=== PATIENT | male | born 1965 | race Caucasian/White ===

== ENCOUNTER 2019-11-25 15:08 | Observation (INO) | payer BC ==
[2019-11-25] MEDS ORDERED: SODIUM CHLORIDE 0.9% (FLUSH) 10 ML SYG IV PRN (15:22)
--- NOTE | 2019-11-25 15:33 | ED.PDOC ---
History of Present Illness - General Time Seen by Provider: 11/25/19 15:22 Source: patient - History of Present Illness Initial Comments: 54 yo male who presents with cc of Left inguinal pain. Reports onset 1 week ago with progressive worsening. Reports hx of inguinal hernia on the left side at site of pain for many years. Reports it seems the hernia has increased in size over the past week. Reports this has happened in the past and usually he is able to push it back in but currently he is not able to. Also reports only 1-2 stools over the past week and worsening abdominal distension. Currently reports 3/10 constant pain to L inguinal region which radiates into L testicle. Denies any fevers, chills, n/v/d, urinary sx's. His PCP in [place] told him to come here for possible surgical consultation. Allergies/Adverse Reactions: Allergies NO KNOWN ALLERGY Allergy (Verified 11/25/19 15:26) Review of Systems - Review of Systems Review of Systems: 11/25/19 15:43 as per HPI All other Systems: Reviewed and Negative Family Medical History - Family History Mother Family History: Unknown Living Status: Physical Exam - Physical Exam General Appearance: Alert, Comfortable, No apparent distress Eye Exam: bilateral normal Ears, Nose, Throat: hearing grossly normal, normal ENT inspection, normal pharynx Neck: non-tender, full range of motion, supple, normal inspection Respiratory: lungs clear, normal breath sounds, no respiratory distress, no accessory muscle use Cardiovascular/Chest: normal peripheral pulses, regular rate, rhythm, no edema, no gallop, no JVD, no murmur Peripheral Pulses: radial,right: 2+, radial,left: 2+ Gastrointestinal/Abdominal: soft, abnormal bowel sounds - decreased throughout, tenderness - mild LLQ ttp without guarding or rebound, hernia - large left inguinal hernia which protrudes into Left scrotal sac, moderately tender, soft, does not easily reduce, scrotum normal color w/o redness/warmth, L testicle not easily palpated given scrotal hernia, R testicle normal and nontender on palpation Back Exam: normal inspection, no CVA tenderness, no vertebral tenderness Extremity: normal range of motion, non-tender, normal inspection, no pedal edema, no calf tenderness Neurologic: no motor/sensory deficits, alert, normal mood/affect, oriented x 3 Skin Exam: normal color, warm/dry Progress - Progress Progress: 11/25/19 15:43 Acute left inguinal pain -consider inguinal hernia incarceration, strangulation. Consider also constipation, SBO, diverticulitis, kidney stone, epididymitis, UTI, testicular torsion, other -obtain labs, US of hernia, consider surgical consultation 11/25/19 18:41 -Labs pretty unremarkable, pt stable, pain well-controlled -KUB shows moderate amount of stool in the colon without obstruction per my read -US soft tissue of hernia reveals Left inguinal hernia into left scrotum and appears to contain bowel. Left testicle visualized with good blood flow. -Discussed with Dr. Ugarte who came and saw pt in ED - will admit for surgical reduction as he was unable to easily reduce in ED. Shivam Lowery MD Billing #[id number] 11/25/19 15:22 IV Care:Saline Lock per Protoc QSHIFT Sodium Chloride 0.9% (Flush) [Saline Flush Syringe] 10 ml IV PRN PRN 11/25/19 18:35 Admission Order Routine Activity:Ambulate TID Intake/Output Q2HX2,Q4HX2,QSHIFT SCD QSHIFT KCl 20Meq/D5 1/2Ns [D5 1/2NS W/ KCL 20 meq/Liter] 1,000 ml IVS .QD 11/25/19 18:39 Consents:Surgery .ONCE 11/25/19 Dinner Regular Diet Laboratory Results - last 24 hr 11/25/19 11/25/19 11/25/19 15:29 15:29 15:29 WBC 6.6 RBC 5.03 Hgb 16.0 Hct 46.3 MCV 92.0 MCH 31.7 H MCHC 34.5 RDW 13.3 Plt Count 319 MPV 8.0 Absolute Neuts (auto) 4.50 Absolute Lymphs (auto) 1.30 Absolute Monos (auto) 0.40 Absolute Eos (auto) 0.30 Absolute Basos (auto) 0.10 Neutrophils % 68.3 Lymphocytes % 20.2 Monocytes % 6.2 Eosinophils % 4.3 Basophils % 1.0 Sodium 137 Potassium 3.9 Chloride 101 Carbon Dioxide 29 Anion Gap 10.9 L BUN 12 Creatinine 1.07 BUN/Creatinine Ratio 11.2 Random Glucose 97 Serum Osmolality 273.5 L Lactic Acid 1.1 Calcium 8.8 Total Bilirubin 0.4 Direct Bilirubin 0.1 Indirect Bilirubin 0.3 AST 15 ALT 20 Alkaline Phosphatase 59 Serum Total Protein 7.0 Albumin 4.1 Urine Color Urine Appearance Urine pH Ur Specific [place] Urine Protein Urine Glucose (UA) Urine Ketones Urine Blood Urine Nitrite Urine Bilirubin Urine Urobilinogen Ur Leukocyte Esterase Urine RBC Urine WBC Ur Epithelial Cells Urine Bacteria 11/25/19 16:00 WBC RBC Hgb Hct MCV MCH MCHC RDW Plt Count MPV Absolute Neuts (auto) Absolute Lymphs (auto) Absolute Monos (auto) Absolute Eos (auto) Absolute Basos (auto) Neutrophils % Lymphocytes % Monocytes % Eosinophils % Basophils % Sodium Potassium Chloride Carbon Dioxide Anion Gap BUN Creatinine BUN/Creatinine Ratio Random Glucose Serum Osmolality Lactic Acid Calcium Total Bilirubin Direct Bilirubin Indirect Bilirubin AST ALT Alkaline Phosphatase Serum Total Protein Albumin Urine Color Yellow Urine Appearance Clear Urine pH 6.0 Ur Specific [place] >= 1.030 Urine Protein Negative Urine Glucose (UA) Negative Urine Ketones Negative Urine Blood Negative Urine Nitrite Negative Urine Bilirubin Negative Urine Urobilinogen 0.2 Ur Leukocyte Esterase Negative Urine RBC 0 Urine WBC 0-1 Ur Epithelial Cells 0 Urine Bacteria 0 Departure - Departure Clinical Impression: Incarcerated inguinal hernia, Inguinal hernia of left side without obstruction or gangrene Time of Disposition: 18:41 Disposition: Admit Patient Condition: Fair Referrals: CINTHIA OLIVER [Primary Care Provider] - 1-2 Weeks Decision To Admit - Decistion To Admit Decision to Admit Reason: Admit from ER Decision to Admit Date: 11/25/19 Decision to Admit Time: 18:41
[2019-11-25] MEDS ORDERED: KETOROLAC TROMETHAMINE INJ 30 MG/ML VIAL IV ONE (15:51)
--- NOTE | 2019-11-25 16:10 | RAD ---
EXAM DESCRIPTION: Abdomen 1 View CLINICAL HISTORY: LLQ pain, enlarged inguinal hernia, constipation COMPARISON: None Available. TECHNIQUE: KUB FINDINGS: Moderate amount of fecal material in the colon. No small bowel dilatation to suggest obstruction. No mass or solid organ visceromegaly. No definite abnormal calcifications. Few phleboliths in the pelvis. IMPRESSION: No acute process. Electronically signed by: Vinay Horne MD 11/25/2019 4:08 PM CDT
--- NOTE | 2019-11-25 17:09 | US ---
EXAM DESCRIPTION: Soft Tissue,Abdomen CLINICAL HISTORY: Left inguinal/scrotal hernia, acute pain COMPARISON: None. TECHNIQUE: 2-D and color flow sonography FINDINGS: Sonographic evaluation reveals what appears to be herniation of fat and bowel into the left inguinal canal. No bowel peristalsis is identified. The testis on the left appears normal. IMPRESSION: The exam demonstrates evidence of a left inguinal hernia. The left testis appears normal. Electronically signed by: Kishan Shah MD 11/25/2019 5:07 PM CDT
--- NOTE | 2019-11-25 19:16 | HP ---
REASON FOR ADMISSION: Incarcerated left inguinal hernia. HISTORY OF PRESENT ILLNESS: This is a 54-year-old male with a long history of left inguinal hernia. For about a week, it has been becoming a little bit larger, no longer reducible and painful. No nausea, vomiting, no constipation, no black or bloody stools. He is having some pain with activity, but not constant pain. PAST MEDICAL HISTORY: He denies any significant medical problems. CURRENT MEDICATIONS: None. ALLERGIES: None. SOCIAL HISTORY: No illicit habits. REVIEW OF SYSTEMS: GENERAL: No fevers, no chills. HEENT: No headache, no visual changes. No sore throat or cough. RESPIRATORY: No wheeze. CARDIOVASCULAR: No chest pain or palpitations. GASTROINTESTINAL: As above. No significant problems with constipation or diarrhea, etc. EXTREMITIES: No complaints. PHYSICAL EXAMINATION: VITAL SIGNS: Afebrile. Vital signs are normal. GENERAL: He is conscious, alert and well oriented. He is very comfortable. HEENT: Normocephalic, atraumatic. Pupils are equal and reactive. Sclera anicteric. Oral mucosa is moist. NECK: Supple. No adenopathy noted. CHEST: Clear and equal bilaterally. CARDIOVASCULAR: Regular rate and rhythm. No morbidity. ABDOMEN: Soft, nontender. No masses, no hernias, no hepatosplenomegaly. No CVA tenderness. GENITOURINARY: The right testicle is normal. The left testicle is nonpalpable due to the large hernia. Attempts at reduction were unsuccessful. There is no overlying erythema, no real pain, so it does not appear strangulated. EXTREMITIES: No cyanosis, clubbing or edema. LABORATORY: White count 6, hemoglobin 46, platelet count 319. BMP relatively normal as are liver function tests. RADIOLOGY: Ultrasound was done which shows left inguinal hernia and left testicle appear normal on that exam. ASSESSMENT: 1. Incarcerated left inguinal hernia, nonreducible. PLAN: The plan is for repair. The Operating Room staff is gone at this time, so we can do it safely in the morning. It is an urgent case with risk of strangulation, so even given the restrictive times, we will proceed with surgery. #[id number] [facility]
[2019-11-25] MEDS: KCL 20MEQ/D5 1/2NS 1,000 ML IVS PRN (20:52)
[2019-11-26] MEDS: KCL 20MEQ/D5 1/2NS 1,000 ML IVS PRN (06:31)
[2019-11-26] MEDS ORDERED: BUPIVACAINE 0.5% W/EPI 30 ML VIAL INJ ONE ×2 (06:58→10:36)
[2019-11-26] MEDS ORDERED: LACTATED RINGERS 1,000 ML ONE (09:37)
[2019-11-26] MEDS ORDERED: MIDAZOLAM INJ 5 MG/5 ML VIAL IV ONE (12:00)
[2019-11-26] MEDS ORDERED: KETAMINE HCL 100 MG/ML VIAL IV ONE (12:00)
[2019-11-26] MEDS ORDERED: HYDROmorphone HCL INJ 2 MG/ML VIAL IV ONE (12:00)
--- NOTE | 2019-11-26 13:16 | OP ---
DATE OF PROCEDURE: 11/26/19 PREOPERATIVE DIAGNOSIS: 1. Incarcerated left inguinal hernia. POSTOPERATIVE DIAGNOSIS: 1. Incarcerated left inguinal hernia. PROCEDURE: 1. Repair of extremely large incarcerated left inguinal hernia, difficult case modifier 22. 2. Ilioinguinal nerve block for postoperative pain control. SURGEON: Cleveland Hoang MD. ANESTHESIA: General and local. FINDINGS: The patient had a very large incarcerated hernia and very large sac. There was some edema in the site, but no evidence of bowel ischemia, suspect it was the colon although it was able to be reduced mid procedure. No bloody fluid or evidence of strangulation. The ilioinguinal nerve was identified. The large PHS was used. Three sutures were used laterally to close the large defect. COMPLICATIONS: None. ESTIMATED BLOOD LOSS: Minimal. PLAN: Discharge. INDICATION: The patient presented to the Emergency Department. He had a long history of a hernia, but now it was very much larger and painful. He came to the Emergency Room last evening and was unable to reduce it upon multiple attempts, so it is incarcerated with risk of strangulation and he needs this procedure even given the COVID situation. PROCEDURE: This morning, he was brought the Operating Suite in supine position. General anesthesia was induced. He was prepped and draped in sterile fashion. Ilioinguinal nerve block was performed with 3 cc of 0.5% Marcaine with epinephrine base on anatomic landmarks. We then injected the incision site. Incision was made. Subcutaneous tissue was taken down. Subcutaneous vessels were cauterized. The external oblique aponeurosis was identified. There was a large hernia bulging from the dilated out external ring. A eder was made. We opened up the external oblique along its fibers. We identified the nerve immediately and dissected out from the surrounding tissue and protected it superiorly. We then took all the chronic scar tissue around the sac. I was going to ligate the sac, but it was so big. We got to the end of the sac in the mid cord and dissected it off the cord structures. There was some oozing during this which was controlled with cautery. The vas deferens and vessels were able to be easily identified and . We dissected that sac down to the internal ring and at that point, I was able to reduce the sac and its contents. Using a laparotomy pad, gentle finger sweeps, etc., I was able to create the preperitoneal plane without difficulty. [place] was used to keep the epigastric vessels anteriorly while the large PHS mesh was placed. Careful placement to ensure it was flat in the preperitoneal plane. The defect was quite large, so in order to maintain integrity of the mesh, I closed the muscles laterally with three interrupted 2-0 Vicryl sutures to get the defect down to reasonable size. At this point, a eder was made, wrapped around the cord, non- stricturing and secured at the shelving edge and then secured the mesh medially to the tubercle with a single 2-0 Vicryl and closed the external oblique with a running 2-0 Vicryl. There was good hemostasis. At this point, a lot of extra local was used in the aponeurosis. The testicle was down in the scrotum. No bleeding ongoing. Everything looked good. The wound was then closed in two layers of absorbable suture. Dressing was applied. The patient was awakened and taken to Recovery where he will then be able to be discharged. #[id number] [facility]
[2019-11-26] MEDS ORDERED: MAGNESIUM SULFATE INJ 1 GM/2 ML VIAL IVPB ONE (13:24)
[2019-11-26] MEDS ORDERED: ceFAZolin SODIUM 1 GM VIAL IVPB ONE (13:24)
[2019-11-26] MEDS ORDERED: raNITIdine HCL INJ 25 MG/ML VIAL IV ONE (13:24)
[2019-11-26] MEDS ORDERED: LIDOCAINE 1% 10 ML VIAL INJ ONE (13:24)
[2019-11-26] MEDS ORDERED: DEXAMETHASONE INJ 10 MG/ML VIAL IV ONE (13:24)
[2019-11-26] MEDS ORDERED: PROPOFOL 200 MG/20 ML VIAL IV ONE (13:24)
[2019-11-26] MEDS ORDERED: HYDROcodone 5MG/APAP 325MG 1 EA TAB PO PRN (13:48)
[2019-11-26 16:01] VITALS: BP 116/72; TEMP 97.8; O2SAT 95
== END 2019-11-26 15:40 | disposition home or self-care (01) ==
LOC: ER 15:08 → OBSVTOIN 19:12 → MS 19:12 → INTOOBSV 19:12
PROVIDERS: ADMIT Surgery; ATTEND Surgery
DX: K40.30 Unilateral inguinal hernia, with obstruction, without gangrene, not specified as recurrent (principal); G89.18 Other acute postprocedural pain; F17.210 Nicotine dependence, cigarettes, uncomplicated
CPT/HCPCS: 49507; 00830; 64425; 96366 ×2; 96365; 96375; J0690; J1170; J1885; J3490; J3475; J2250; J1100; J2780; J7120; 80048; 36415; 81001; 80076; 85025; 83605; 74018; 76705; 99285; G0378